=== PATIENT | male | born 1935 ===

== ENCOUNTER 2019-03-03 20:35 | Emergency (ER) | payer OTHER ==
[~2019-03-03] VITALS: Ht 162.6 cm; Wt 61.2 kg
[2019-03-03] MEDS ORDERED: TAMS0.4C (21:13)
[2019-03-03] MEDS ORDERED: LIPITOR20 MG (21:13)
[2019-03-03] MEDS ORDERED: XARELTO10 MG (21:13)
[2019-03-03] MEDS ORDERED: LOSARTAN POTASS25 MG (21:13)
[2019-03-03] MEDS ORDERED: CIPRO100 MG (21:13)
[2019-03-03] MEDS ORDERED: ZANTAC150 MG (21:13)
== END 2019-03-03 22:32 | disposition home or self-care (01) ==
LOC: ER 20:35
DX: R30.0 Dysuria (principal); Z98.890 Other specified postprocedural states

== ENCOUNTER 2019-03-13 19:20 | Emergency (ER) | payer OTHER ==
[~2019-03-13] VITALS: Ht 170.2 cm; Wt 63.5 kg
[~2019-03-13 19:20] MED LIST: CIPRO100 MG; LIPITOR20 MG; LOSARTAN POTASS25 MG; TAMS0.4C; XARELTO10 MG; ZANTAC150 MG
[2019-03-13] MEDS ORDERED: CIPRO500 MG (19:35)
== END 2019-03-13 21:31 | disposition home or self-care (01) ==
LOC: ER 19:20
DX: N32.0 Bladder-neck obstruction (principal); N39.0 Urinary tract infection, site not specified; R31.0 Gross hematuria